=== PATIENT | male | born 1955 | race African-American/Black ===

== ENCOUNTER 2019-10-20 | Emergency (ER) | payer BC ==
[2019-10-20] MEDS ORDERED: SPIRONOLACT25 MG PO (15:13)
[2019-10-20] MEDS ORDERED: LISINOPRIL5 MG PO (15:13)
[2019-10-20] MEDS ORDERED: FUROSEMIDE20 MG PO (15:14)
[2019-10-20] MEDS ORDERED: ZYLOPRIM100 MG PO (15:14)
[2019-10-20] MEDS ORDERED: NORVASC2.5 M1 PO (15:15)
[2019-10-20] MEDS ORDERED: TERAZOSIN5 MG PO (15:15)
[2019-10-20 15:49] LABS: HEMATOCRIT 38.2 % (39.0-50.0); HEMOGLOBIN 11.9 g/dl (14.0-18.0); IMMATURE GRANULOCYTES 0.3 % (0.0-5.0); MEAN CORPUSCULAR HGB 30.2 pG CALC (26.0-32.0); MEAN CORPUSCULAR HGB CONC 31.2 g/L CALC (32.0-36.0); NEUT# 4.87 thou/uL (1.82-7.42); RED BLOOD COUNT 3.94 mill/uL (4.70-6.10); RED CELL DISTRI WIDTH 12.7 % (11.5-15.5)
[2019-10-20 16:10] LABS: ANION GAP 11 (6-22 (CALC)); BUN 33 mg/dL (8-23); BUN/CREATININE RATIO 19 (12-20 (CALC)); CARBON DIOXIDE 26 mmol/l (22-30); CHLORIDE 108 mmol/l (95-108); CREATININE 1.7 mg/dL (0.7-1.3); GFR 41 ML/MIN (>=60 (CALC)); GFR FOR AFR.AMER. 50 ML/MIN (>=60 (CALC)); POTASSIUM 4.2 mmol/l (3.5-5.1); SODIUM 140 mmol/l (137-146)
[2019-10-20] MEDS ORDERED: CYCLOBENZAPR5 MG PO (17:00)
== END 2019-10-20 17:17 | disposition home or self-care (01) | DRG 556 ==
PROVIDERS: Family Medicine
DX: M25.511 Pain in right shoulder (principal); I11.0 Hypertensive heart disease with heart failure; I50.9 Heart failure, unspecified

== ENCOUNTER 2020-11-14 14:29 | Emergency (ER) | payer BC ==
[~2020-11-14] VITALS: Ht 190.5 cm; Wt 175.0 kg
[~2020-11-14 14:29] MED LIST: CYCLOBENZAPR5 MG PO; FUROSEMIDE20 MG PO; LISINOPRIL5 MG PO; NORVASC2.5 M1 PO; SPIRONOLACT25 MG PO; TERAZOSIN5 MG PO; ZYLOPRIM100 MG PO
[2020-11-14 15:17] LABS: HEMATOCRIT 37.9 % (39.0-50.0); HEMOGLOBIN 12.3 g/dl (14.0-18.0); IMMATURE GRANULOCYTES 0.8 % (0.0-5.0); MEAN CELL VOLUME 95.5 fL CALC (80.0-100.0); MEAN CORPUSCULAR HGB CONC 32.5 g/dL CAL (32.0-36.0); RED BLOOD COUNT 3.97 mill/uL (4.70-6.10); RED CELL DISTRI WIDTH 13.5 % (11.5-15.5)
[2020-11-14 15:35] LABS: INTERNATIONAL NORMALIZED RATIO 1.2 RATIO (0.7-1.3); PROTHROMBIN TIME 11.6 SECONDS (9.0-12.5)
[2020-11-14 15:37] LABS: ALBUMIN 4.3 g/dL (3.2-5.0); ALKALINE PHOSPHATASE 55 u/l (38-126); ANION GAP 14 (6-22 (CALC)); BILIRUBIN, TOTAL 0.7 mg/dL (0.0-1.4); BUN 31 mg/dL (8-23); BUN/CREATININE RATIO 13 (12-20 (CALC)); CARBON DIOXIDE 24 mmol/l (22-30); CHLORIDE 103 mmol/l (95-108); CREATININE 2.3 mg/dL (0.7-1.3); GFR 29 ML/MIN (>=60 (CALC)); GFR FOR AFR.AMER. 35 ML/MIN (>=60 (CALC)); POTASSIUM 4.3 mmol/l (3.5-5.1); SODIUM 136 mmol/l (137-146); TOTAL PROTEIN 8.4 g/dL (6.3-8.2)
[2020-11-14 15:39] LABS: SGOT/AST 152 u/l (19-48)
[2020-11-14] MEDS ORDERED: DECADRON4 MG PO ×2 (17:14→17:40)
[2020-11-14] MEDS ORDERED: VENTOLIN HFA IN ×2 (17:16→17:40)
[2020-11-14 17:44] VITALS: BP 139/88
== END 2020-11-14 17:53 | disposition home or self-care (01) | DRG 204 ==
LOC: ED 14:29
PROVIDERS: Student in an Organized Health Care Education/Training Program
DX: R91.8 Other nonspecific abnormal finding of lung field (principal); I13.0 Hypertensive heart and chronic kidney disease with heart failure and stage 1 through stage 4 chronic kidney disease, or unspecified chronic kidney disease; I50.9 Heart failure, unspecified; N18.9 Chronic kidney disease, unspecified; M10.9 Gout, unspecified; Z86.73 Personal history of transient ischemic attack (TIA), and cerebral infarction without residual deficits; Z20.822 Contact with and (suspected) exposure to COVID-19

== ENCOUNTER 2021-01-18 10:17 | Observation (INO) | payer BC ==
[~2021-01-18] VITALS: Ht 190.5 cm; Wt 172.0 kg
[~2021-01-18 10:17] MED LIST changes: +DECADRON4 MG PO; +VENTOLIN HFA IN
--- NOTE | 2021-01-18 10:20 | NUR ---
PT AMBULATED BACK TO ROOM. PT EXPLAINED PLAN OF CARE.
[2021-01-18] MEDS ORDERED: NORVASC5 M1 PO (11:03)
[2021-01-18] MEDS ORDERED: FUROSEMIDE20 MG PO ×2 (11:04→13:24)
[2021-01-18] MEDS ORDERED: AZATHIOPRINE50 MG PO (11:04)
[2021-01-18] MEDS ORDERED: CENTRUM ADULTS1 TAB (11:05)
[2021-01-18] MEDS ORDERED: D31000 UNIT PO (11:05)
--- NOTE | 2021-01-18 11:10 | NUR ---
RESTING IN BED WITH LEG ELEVATED AND AT BEDSIDE
[2021-01-18 11:17] LABS: HEMATOCRIT 35.2 % (39.0-50.0); IMMATURE GRANULOCYTES 0.6 % (0.0-5.0); MEAN CELL VOLUME 98.3 fL CALC (80.0-100.0); MEAN CORPUSCULAR HGB 30.7 pG CALC (26.0-32.0); MEAN CORPUSCULAR HGB CONC 31.3 g/dL CAL (32.0-36.0); NEUT# 3.69 thou/uL (1.82-7.42); RED BLOOD COUNT 3.58 mill/uL (4.70-6.10); RED CELL DISTRI WIDTH 14.4 % (11.5-15.5)
[2021-01-18 11:25] LABS: INTERNATIONAL NORMALIZED RATIO 1.1 RATIO (0.7-1.3); PROTHROMBIN TIME 10.7 SECONDS (9.0-12.5)
[2021-01-18 11:29] LABS: ALBUMIN 4.2 g/dL (3.2-5.0); ALKALINE PHOSPHATASE 58 u/l (38-126); ANION GAP 12 (6-22 (CALC)); BILIRUBIN, TOTAL 0.5 mg/dL (0.0-1.4); BUN 21 mg/dL (8-23); BUN/CREATININE RATIO 15 (12-20 (CALC)); CARBON DIOXIDE 26 mmol/l (22-30); CHLORIDE 107 mmol/l (95-108); CREATININE 1.4 mg/dL (0.7-1.3); GFR 51 ML/MIN (>=60 (CALC)); GFR FOR AFR.AMER. > 60 ML/MIN (>=60 (CALC)); POTASSIUM 4.1 mmol/l (3.5-5.1); SGOT/AST 53 u/l (19-48); SODIUM 140 mmol/l (137-146)
--- NOTE | 2021-01-18 12:36 | NUR ---
WALKED TO THE BATHROOM WITH THE ASSISTANCE OF A CANE
--- NOTE | 2021-01-18 13:41 | NUR ---
RESTING IN BED AT THIS TIME WITH AT THE BEDSIDE
[2021-01-18] MEDS ORDERED: LISINOPRIL20 MG PO (13:42)
[2021-01-18] MEDS ORDERED: METOLAZONE5 MG PO (13:42)
[2021-01-18] MEDS ORDERED: ANORO ELLIPTA 61 AER IN (13:42)
--- NOTE | 2021-01-18 14:40 | NUR ---
RECIEVED REPORT FROM JAYSHREE DONOVAN
--- NOTE | 2021-01-18 14:48 | NUR ---
PT ARRIVED TO [facility] ROOM 279 VIA WHEELCHAIR IN STABLE CONDITION ACCOMPINED BY ER STAFF. PT AMBULATED TO BED WITH STEADY GAIT. ASSESSMENT AND VITALS COMPLETED. BP 174/124, HR 65, O2 100% ON ROOM AIR. DYAN ZHOU NOTFIED OF BP. RESPIRATIONS ARE EVEN AND UNLABORED WITH NO DISTRESS NOTED. LUNG SOUNDS ARE CLEAR. HEART RHYTHM IS NORMAL. BOWEL SOUNDS ARE ACTIVE. #18G IN RAC FLUSHED, SITE APPEARS HEALTHY AND PATENT. SKIN IS COOL AND INTACT. 3+ EDEMA NOTED TO BLE, MORE SO THE RIGHT. PT REPORTS OF PREVIOUS STROKE. NO DRIFTS NOTED.HOME CPAP AT BEDSIDE. PT DENIES OF ANY PAINS OR DISCOMFORTS AT THIS TIME.ALLERGIES NOTED. PT ORIENTED TO ROOM AND CALL LIGHT SYSTEM. ALL SAFTEY PRECAUTIONS ARE IN PLACE WITH CALL LIGHT IN REACH. WILL CONTINUE TO MONITOR
[2021-01-18 14:55] VITALS: BP 174/124
--- NOTE | 2021-01-18 14:56 | NUR ---
Admission Note Report Given to: SENTHIL Transported by: X Wheelchair Stretcher Transported with: X Nurse Transporter Patent IV O2 Soda Column Operator Location: ICU D MS2 REPORTED NO ELIQUIS IN THE ER, WILL NEED TO BE GIVEEN
--- NOTE | 2021-01-18 15:01 | NUR ---
ABELARDO,ANRP AT BEDSIDE
--- NOTE | 2021-01-18 15:32 | NUR ---
RT AT BEDSIDE TO COMPLETE EKG
--- NOTE | 2021-01-18 16:10 | NUR ---
RADIOLOGY AT BEDSIDE
[2021-01-18 16:25] VITALS: BP 167/109
--- NOTE | 2021-01-18 16:33 | NUR ---
REASSESSMENT OF BP RESULTING IN 167/109, HR 69. PT REMAINS A/O X3. RESPIRATIONSA RE EVEN AND UNLABORED WITH NO DISRTESS. #18G IN RAC REMAINS PATENT. PT DENIES OF ANY PAINS OR DISCOMFORTS. PT AWARE OF HOME MEDICATION NEEDED TO BE BROUGHT IN. PT VERBALIZED DUNERSTANDING. ALL SAFETY PRECAUTIONS ARE IN PLACE WITH CALL LIGHT IN REACH. WILL CONTINUE TO MONITOR.
[2021-01-18 17:04] VITALS: BP 159/99
--- NOTE | 2021-01-18 17:18 | NUR ---
JAYSHREE YANEZ TO ADMINISTER IV APRESOLIN. BP RESULTING IN 159/99. APRESOLINE IV HELD. WILL CONTINUE TO MONITOR.
[2021-01-18 19:00] VITALS: BP 161/93
--- NOTE | 2021-01-18 19:50 | NUR ---
PT ADMITTED EARLIER FOR DVT, SIGNIFICANT EDEMA TO BLE WORSE ON RIGHT , PP WITH DOPPLER, ABD SOFT AND BS ACTIVE, DENIES PAIN TO AREA STATES HE CAN FEEL LIKE A PRESSURE IN THE R LE BUT NOT ACTUALLY PAIN. SKIN OTHERWISE WARM AND INTACT, COMFORT MEASURES PROVIDED, PT HOME CPAP AT BEDSIDE FOR HS. CALL CLAUDIA GILBERT, PT REPOSITIONS SELF FOR COMFORT.
--- NOTE | 2021-01-18 22:21 | NUR ---
PT PLACED HOME CPAP ON AT 2130, RESTING WITH EYES CLOSED, NO S/S OF DISTRESS NOTED.
--- NOTE | 2021-01-19 03:05 | NUR ---
PT RESTING IN BED WITH EYES CLOSED AND HOME CPAP ON WITH NO S/S OF DISTRESS. CALL TAYLOR WITHIN REACH.
[2021-01-19 04:00] VITALS: BP 141/86
--- NOTE | 2021-01-19 04:22 | NUR ---
PATIENT RESTING INBED WITH HOME CPAP INPLACE, OFFERS NO C/O PAIN OR DISCOMFORT, CALL TAYLOR WITHIN REACH, EDEMA TO BLE REMAINS UNCHANGED
[2021-01-19 05:44] LABS: ANION GAP 8 (6-22 (CALC)); BUN 20 mg/dL (8-23); BUN/CREATININE RATIO 15 (12-20 (CALC)); CARBON DIOXIDE 30 mmol/l (22-30); CHLORIDE 107 mmol/l (95-108); CREATININE 1.3 mg/dL (0.7-1.3); GFR 56 ML/MIN (>=60 (CALC)); GFR FOR AFR.AMER. > 60 ML/MIN (>=60 (CALC)); POTASSIUM 4.3 mmol/l (3.5-5.1); SODIUM 140 mmol/l (137-146)
[2021-01-19 05:45] LABS: HEMATOCRIT 34.5 % (39.0-50.0); HEMOGLOBIN 10.5 g/dl (14.0-18.0); MEAN CELL VOLUME 99.7 fL CALC (80.0-100.0); MEAN CORPUSCULAR HGB 30.3 pG CALC (26.0-32.0); MEAN CORPUSCULAR HGB CONC 30.4 g/dL CAL (32.0-36.0); RED BLOOD COUNT 3.46 mill/uL (4.70-6.10); RED CELL DISTRI WIDTH 14.5 % (11.5-15.5)
--- NOTE | 2021-01-19 07:00 | NUR ---
RECIEVED REPORT FROM JAYSHREE GLEZ
[2021-01-19 07:36] VITALS: BP 126/82
--- NOTE | 2021-01-19 07:55 | NUR ---
PT SITTING IN CHAIR. PT IS A/O X3. ASSESSMENT AND VITALS COMPLETED.BP126/82, HR61, O2 100% ON ROOM AIR. RESPIRATIONS ARE EVEN AND UNLABORED WITH NO DISTRESS NOTED. LUNG SOUNDS ARE CLEAR. HEART RHYTHM IS NORMAL. BOWEL SOUNDS ARE ACTIVE, EPORTED BM THIS MORNING. #18G IN RAC FLUSHED, SITE IS SLIGHTLY LEAKING PT STATES "WE CAN START A NEW ONE IF I STAY." 4+ EDEMA NOTED TO BLE, MORE SO ON THE RIGHT. SKIN INTACT. RADIAL PULSES STRONG. PEDAL PULSES WEAK. PT DENIES OF ANY PAINS OR DSICOMFORTS AT THIS TIME. PT INFORMED OF NEEDED HOME MED, VERBLAIZED UNDERSTANDING. ALL SAFETY PRECAUTIONS ARE IN PLAACE WITH CALL LIGHT IN REACH. WILL CONTINUE TO MONITOR
[2021-01-19 08:55] VITALS: BP 126/82
--- NOTE | 2021-01-19 09:30 | NUR ---
DR SOTELO AT BEDSIDE
--- NOTE | 2021-01-19 10:39 | NUR ---
PT TRANSPORTED TO CT VIA WHEELCHAIR IN STABLE CONDITION ACCOMPINED BY JAYSHREE DAY
--- NOTE | 2021-01-19 12:20 | NUR ---
PT SITTING UP IN RECYLINER EATING LUNCH. RESPIRATIONS ARE EVEN AND UNLABORED WITH NO DISTRESS NOTED. PT NOTIFIED OF DC LATER AFTERNOON. PT VERBLAIZED UNDERSTANDING. PT DENIES OF ANY NEEDS AT THIS TIME. ALL SAFTEY PRECAUTIONS ARE IN PLACE WITH CALL LIGHT IN REACH. WILL CONTINUE.
[2021-01-19] MEDS ORDERED: ELIQUIS STARTER5 MG PO (12:26)
--- NOTE | 2021-01-19 13:28 | NUR ---
PT EDUCTAED ON DISCHARGE INSTRUCTIONS AND ELIQUIS WITH AT BEDSIDE. PT VERBLAIZED UNDERSTANDING. #18G IN RAC REMOVED WITH CATHATER STILL INTACT. PT DENIES OF ANY QUESTIONS OR CONCERNS.
--- NOTE | 2021-01-19 13:36 | NUR ---
Discharge instructions given. Patient verbalizes understanding of same. Discharged in stable condition via Wheelchair to Home with staff. All belongings sent with pt. PT DISCHARGED HOME VIA WHEELCHAIR IN STABLE CONDITION ACCOMPAINED BY AND STAFF. PT DISCHARGED WITH ALL BELONINGS AND DC INSTRUCTIONS.
== END 2021-01-19 13:31 | disposition home or self-care (01) | DRG 300 ==
LOC: ED 10:17 → ED-I 11:30 → ED 11:51 → MS2 11:52
PROVIDERS: Emergency Medicine; Nurse Practitioner; ADMIT Internal Medicine; ATTEND Internal Medicine
DX: I82.411 Acute embolism and thrombosis of right femoral vein (principal); I13.0 Hypertensive heart and chronic kidney disease with heart failure and stage 1 through stage 4 chronic kidney disease, or unspecified chronic kidney disease; I82.431 Acute embolism and thrombosis of right popliteal vein; I50.9 Heart failure, unspecified; N18.9 Chronic kidney disease, unspecified; J44.9 Chronic obstructive pulmonary disease, unspecified; M10.9 Gout, unspecified; I89.0 Lymphedema, not elsewhere classified; M19.90 Unspecified osteoarthritis, unspecified site; Z91.041 Radiographic dye allergy status; Z87.891 Personal history of nicotine dependence; Z86.73 Personal history of transient ischemic attack (TIA), and cerebral infarction without residual deficits; Z20.822 Contact with and (suspected) exposure to COVID-19; R60.0 Localized edema; I82.4Y1 Acute embolism and thrombosis of unspecified deep veins of right proximal lower extremity
CPT/HCPCS: G0378

== ENCOUNTER 2022-04-13 08:48 | Day surgery (SDC) | payer MEDICARE ==
[~2022-04-13] VITALS: Ht 190.5 cm; Wt 175.1 kg
[~2022-04-13 08:48] MED LIST changes: +ANORO ELLIPTA 61 AER IN; +AZATHIOPRINE50 MG PO; +CENTRUM ADULTS1 TAB; +D31000 UNIT PO; +ELIQUIS STARTER5 MG PO; +LABETALOL HYDR200 MG PO; +LISINOPRIL20 MG PO; +METOLAZONE5 MG PO; +NORVASC5 M1 PO
[2022-04-13 11:27] VITALS: BP 168/98
== END 2022-04-13 11:16 | disposition home or self-care (01) ==
LOC: ENDO 08:48
PROVIDERS: ATTEND Surgery
PROC: 0DJD8ZZ Inspection of Lower Intestinal Tract, Via Natural or Artificial Opening Endoscopic (ICD-10-PCS; principal; 2022-04-13)
DX: Z12.11 Encounter for screening for malignant neoplasm of colon (principal); K57.30 Diverticulosis of large intestine without perforation or abscess without bleeding; I10 Essential (primary) hypertension; E11.9 Type 2 diabetes mellitus without complications; Z86.010 Personal history of colon polyps

== ENCOUNTER 2022-06-02 06:53 | Emergency (ER) | payer MEDICARE ==
[~2022-06-02] VITALS: Ht 190.5 cm; Wt 166.0 kg
[2022-06-02] VITALS (11 sets, daily range): BP systolic 102–169; BP diastolic 62–97
[2022-06-02 07:39] LABS: HEMATOCRIT 40.2 % (39.0-50.0); HEMOGLOBIN 13.1 g/dl (14.0-18.0); MEAN CELL VOLUME 93.5 fL CALC (80.0-100.0); MEAN CORPUSCULAR HGB 30.5 pG CALC (26.0-32.0); MEAN CORPUSCULAR HGB CONC 32.6 g/dL CAL (32.0-36.0); NEUT# 10.67 thou/uL (1.82-7.42); RED BLOOD COUNT 4.3 mill/uL (4.70-6.10); RED CELL DISTRI WIDTH 13.8 % (11.5-15.5)
[2022-06-02 07:54] LABS: ALBUMIN 3.5 g/dL (3.2-5.0); ALKALINE PHOSPHATASE 65 u/l (38-126); ANION GAP 11 (6-22 (CALC)); BUN 25 mg/dL (8-23); BUN/CREATININE RATIO 12 (12-20 (CALC)); CARBON DIOXIDE 27 mmol/l (22-30); CHLORIDE 107 mmol/l (95-108); CREATININE 2.1 mg/dL (0.7-1.3); GFR FOR AFR.AMER. 38 ML/MIN (>=60 (CALC)); GFR OTHER RACES 32 ML/MIN (>=60 (CALC)); SGOT/AST 43 u/l (19-48); SODIUM 141 mmol/l (137-146); TOTAL PROTEIN 7.3 g/dL (6.3-8.2)
[2022-06-02 07:55] LABS: BILIRUBIN, TOTAL 0.8 mg/dL (0.0-1.4)
[2022-06-02 08:05] LABS: MYOGLOBIN 1291 ng/mL (0 - 121)
[2022-06-02] MEDS ORDERED: ZITHROMAX250 MG PO (09:50)
[2022-06-02] MEDS ORDERED: VENTOLIN HFA108 MCG PO (09:50)
[2022-06-02] MEDS ORDERED: OMNICEF300 M1 PO (09:50)
[2022-06-02] MEDS ORDERED: PREDNISONE20 MG PO (09:50)
== END 2022-06-02 11:15 | disposition home or self-care (01) ==
LOC: ED 06:53
PROVIDERS: Emergency Medicine
DX: J44.1 Chronic obstructive pulmonary disease with (acute) exacerbation (principal); J18.9 Pneumonia, unspecified organism; J44.0 Chronic obstructive pulmonary disease with (acute) lower respiratory infection; I11.0 Hypertensive heart disease with heart failure; I50.9 Heart failure, unspecified; I73.9 Peripheral vascular disease, unspecified; Z86.73 Personal history of transient ischemic attack (TIA), and cerebral infarction without residual deficits; Z20.822 Contact with and (suspected) exposure to COVID-19

== ENCOUNTER 2022-07-27 15:21 | Emergency (ER) | payer MEDICARE ==
[~2022-07-27] VITALS: Ht 190.5 cm; Wt 172.0 kg
[~2022-07-27 15:21] MED LIST changes: +OMNICEF300 M1 PO; +PREDNISONE20 MG PO; +VENTOLIN HFA108 MCG PO; +ZITHROMAX250 MG PO
[2022-07-27] MEDS ORDERED: PLAVIX75 MG PO (15:26)
[2022-07-27 15:33] VITALS: BP 133/78
[2022-07-27 15:45] LABS: HEMATOCRIT 40.1 % (39.0-50.0); HEMOGLOBIN 12.7 g/dl (14.0-18.0); IMMATURE GRANULOCYTES 0.6 % (0.0-5.0); MEAN CELL VOLUME 97.6 fL CALC (80.0-100.0); MEAN CORPUSCULAR HGB 30.9 pG CALC (26.0-32.0); MEAN CORPUSCULAR HGB CONC 31.7 g/dL CAL (32.0-36.0); NEUT# 7.06 thou/uL (1.82-7.42); RED BLOOD COUNT 4.11 mill/uL (4.70-6.10); RED CELL DISTRI WIDTH 13.8 % (11.5-15.5)
[2022-07-27 15:48] VITALS: BP 116/71
[2022-07-27 16:01] VITALS: BP 117/76
[2022-07-27 16:01] LABS: BILIRUBIN, TOTAL 0.5 mg/dL (0.0-1.4); CREATININE 1.8 mg/dL (0.7-1.3); POTASSIUM 4.1 mmol/l (3.5-5.1); TOTAL PROTEIN 7.8 g/dL (6.3-8.2)
[2022-07-27 16:02] LABS: ALBUMIN 4.3 g/dL (3.2-5.0)
[2022-07-27 16:16] VITALS: BP 126/77
[2022-07-27 16:31] VITALS: BP 142/81
[2022-07-27] MEDS ORDERED: ELIQUIS STARTER5 MG PO (16:32)
[2022-07-27 16:46] VITALS: BP 101/83
== END 2022-07-27 17:21 | disposition home or self-care (01) ==
LOC: ED 15:21
PROVIDERS: Nurse Practitioner
DX: I82.401 Acute embolism and thrombosis of unspecified deep veins of right lower extremity (principal); I11.0 Hypertensive heart disease with heart failure; I50.9 Heart failure, unspecified; I73.9 Peripheral vascular disease, unspecified; Z86.73 Personal history of transient ischemic attack (TIA), and cerebral infarction without residual deficits; R60.0 Localized edema; I82.411 Acute embolism and thrombosis of right femoral vein

== ENCOUNTER 2022-09-07 10:11 | Inpatient (IN) | payer MEDICARE ==
[~2022-09-07] VITALS: Ht 190.5 cm; Wt 173.8 kg
[2022-09-07] VITALS (23 sets, daily range): BP systolic 144–191; BP diastolic 77–108
[~2022-09-07 10:11] MED LIST changes: +PLAVIX75 MG PO
[2022-09-07 10:29] LABS: IMMATURE GRANULOCYTES 0.3 % (0.0-5.0); MEAN CELL VOLUME 96.4 fL CALC (80.0-100.0); MEAN CORPUSCULAR HGB CONC 32.2 g/dL CAL (32.0-36.0); NEUT# 12.91 thou/uL (1.82-7.42); RED BLOOD COUNT 3.35 mill/uL (4.70-6.10); RED CELL DISTRI WIDTH 13.9 % (11.5-15.5)
[2022-09-07 10:32] LABS: HEMATOCRIT 32.3 % (39.0-50.0); HEMOGLOBIN 10.4 g/dl (14.0-18.0)
[2022-09-07 10:41] LABS: ALBUMIN 3.7 g/dL (3.2-5.0); CREATININE 1.6 mg/dL (0.7-1.3); TOTAL PROTEIN 7.5 g/dL (6.3-8.2)
[2022-09-07 10:42] LABS: BILIRUBIN, TOTAL 0.8 mg/dL (0.0-1.4)
[2022-09-07] MEDS ORDERED: COZAAR50 MG PO (12:44)
[2022-09-07] MEDS ORDERED: ELIQUIS5 MG PO (16:31)
[2022-09-08] VITALS (7 sets, daily range): BP systolic 121–134; BP diastolic 61–72
[2022-09-08 06:06] LABS: HEMATOCRIT 33.8 % (39.0-50.0); HEMOGLOBIN 10.9 g/dl (14.0-18.0); IMMATURE GRANULOCYTES 0.5 % (0.0-5.0); MEAN CELL VOLUME 96.6 fL CALC (80.0-100.0); MEAN CORPUSCULAR HGB 31.1 pG CALC (26.0-32.0); MEAN CORPUSCULAR HGB CONC 32.2 g/dL CAL (32.0-36.0); NEUT# 8.83 thou/uL (1.82-7.42); RED BLOOD COUNT 3.5 mill/uL (4.70-6.10); RED CELL DISTRI WIDTH 14.2 % (11.5-15.5)
[2022-09-08 06:42] LABS: ALBUMIN 3.4 g/dL (3.2-5.0); BILIRUBIN, TOTAL 0.7 mg/dL (0.0-1.4); CREATININE 2.1 mg/dL (0.7-1.3); POTASSIUM 3.8 mmol/l (3.5-5.1)
[2022-09-09 04:13] VITALS: BP 124/59
[2022-09-09 05:23] LABS: HEMATOCRIT 34.6 % (39.0-50.0); HEMOGLOBIN 11.1 g/dl (14.0-18.0); IMMATURE GRANULOCYTES 0.4 % (0.0-5.0); MEAN CELL VOLUME 95.6 fL CALC (80.0-100.0); MEAN CORPUSCULAR HGB 30.7 pG CALC (26.0-32.0); MEAN CORPUSCULAR HGB CONC 32.1 g/dL CAL (32.0-36.0); NEUT# 13.96 thou/uL (1.82-7.42); RED BLOOD COUNT 3.62 mill/uL (4.70-6.10); RED CELL DISTRI WIDTH 14.2 % (11.5-15.5)
[2022-09-09 05:53] LABS: ALBUMIN 3.3 g/dL (3.2-5.0); CREATININE 2.1 mg/dL (0.7-1.3); POTASSIUM 4.3 mmol/l (3.5-5.1); TOTAL PROTEIN 6.8 g/dL (6.3-8.2)
[2022-09-09 06:06] LABS: BILIRUBIN, TOTAL 0.4 mg/dL (0.0-1.4)
[2022-09-09 07:00] VITALS: BP 125/70
[2022-09-09 10:05] VITALS: BP 113/64
[2022-09-09 15:55] VITALS: BP 103/54
[2022-09-09 18:57] VITALS: BP 124/61
[2022-09-09 23:50] VITALS: BP 116/59
[2022-09-10 04:27] VITALS: BP 123/58
[2022-09-10 05:42] LABS: HEMATOCRIT 34.6 % (39.0-50.0); HEMOGLOBIN 10.9 g/dl (14.0-18.0); MEAN CELL VOLUME 96.1 fL CALC (80.0-100.0); MEAN CORPUSCULAR HGB 30.3 pG CALC (26.0-32.0); MEAN CORPUSCULAR HGB CONC 31.5 g/dL CAL (32.0-36.0); NEUT# 5.85 thou/uL (1.82-7.42); RED BLOOD COUNT 3.6 mill/uL (4.70-6.10); RED CELL DISTRI WIDTH 14.5 % (11.5-15.5)
[2022-09-10 06:14] LABS: URINE BILIRUBIN - DIPSTICK NEGATIVE (NEGATIVE); URINE BLOOD DIPSTICK SMALL (NEGATIVE); URINE CLARITY SL CLOUDY; URINE COLOR YELLOW; URINE GLUCOSE - DIPSTICK NEGATIVE (NEGATIVE); URINE KETONE TRACE mg/dL (NEGATIVE); URINE LEUK ESTERASE NEGATIVE (Negative); URINE NITRITE - DIPSTICK NEGATIVE (Negative); URINE PH 5.5 (4.5-8.0); URINE PROTEIN - DIPSTICK 30 mg/dL (NEG-TRACE); URINE UROBILINOGEN - DIPSTICK 0.2 E.U./dL (0.2)
[2022-09-10 06:17] LABS: URINE BACTERIA MODERATE hpf; URINE CALCIUM OXALATE CRYSTALS MODERATE lpf; URINE EPITHELIAL CELLS FEW EPI/hpf (0-FEW)
[2022-09-10 06:19] LABS: ALBUMIN 3.1 g/dL (3.2-5.0); BILIRUBIN, TOTAL 0.3 mg/dL (0.0-1.4); CREATININE 2.5 mg/dL (0.7-1.3); POTASSIUM 3.8 mmol/l (3.5-5.1); TOTAL PROTEIN 6.4 g/dL (6.3-8.2)
[2022-09-10 06:40] VITALS: BP 126/69
[2022-09-10 09:10] VITALS: BP 115/62
[2022-09-10 10:18] VITALS: BP 119/66
[2022-09-10 15:01] VITALS: BP 125/73
[2022-09-10 19:25] VITALS: BP 117/61
[2022-09-11 00:17] VITALS: BP 125/59
[2022-09-11 04:26] VITALS: BP 154/62
[2022-09-11 05:13] LABS: HEMATOCRIT 31.3 % (39.0-50.0); IMMATURE GRANULOCYTES 3.6 % (0.0-5.0); MEAN CORPUSCULAR HGB 30.7 pG CALC (26.0-32.0); MEAN CORPUSCULAR HGB CONC 31.9 g/dL CAL (32.0-36.0); NEUT# 3.86 thou/uL (1.82-7.42); RED BLOOD COUNT 3.26 mill/uL (4.70-6.10); RED CELL DISTRI WIDTH 14.7 % (11.5-15.5)
[2022-09-11 05:31] LABS: CREATININE 1.9 mg/dL (0.7-1.3); POTASSIUM 3.6 mmol/l (3.5-5.1)
[2022-09-11 06:26] VITALS: BP 121/61
[2022-09-11 10:43] VITALS: BP 146/84
[2022-09-11 16:20] VITALS: BP 140/48
[2022-09-11 18:52] VITALS: BP 133/53
[2022-09-12 00:37] VITALS: BP 120/57
[2022-09-12 06:15] VITALS: BP 136/54
[2022-09-12 07:38] LABS: ALBUMIN 3.3 g/dL (3.2-5.0); BILIRUBIN, TOTAL 0.2 mg/dL (0.0-1.4); CREATININE 1.7 mg/dL (0.7-1.3); POTASSIUM 3.4 mmol/l (3.5-5.1); TOTAL PROTEIN 6.8 g/dL (6.3-8.2)
[2022-09-12 07:40] LABS: ALBUMIN 3.1 g/dL (3.2-5.0); BUN 41 mg/dL (8-23); CARBON DIOXIDE 27 mmol/l (22-30); CHLORIDE 111 mmol/l (95-108); CREATININE 1.7 mg/dL (0.7-1.3); GFR FOR AFR.AMER. 49 ML/MIN (>=60 (CALC)); GFR OTHER RACES 41 ML/MIN (>=60 (CALC)); POTASSIUM 3.7 mmol/l (3.5-5.1); SODIUM 147 mmol/l (137-146)
[2022-09-12] MEDS ORDERED: ERTAPENEM1 GM IV (08:47)
[2022-09-12 09:55] LABS: HEMATOCRIT 31.7 % (39.0-50.0); HEMOGLOBIN 9.9 g/dl (14.0-18.0); MEAN CELL VOLUME 96.6 fL CALC (80.0-100.0); MEAN CORPUSCULAR HGB 30.2 pG CALC (26.0-32.0); MEAN CORPUSCULAR HGB CONC 31.2 g/dL CAL (32.0-36.0); NEUT# 3.38 thou/uL (1.82-7.42); RED BLOOD COUNT 3.28 mill/uL (4.70-6.10)
[2022-09-12 10:09] VITALS: BP 144/60
[2022-09-12 10:18] LABS: IMMATURE GRANULOCYTES 6.3 % (0.0-5.0)
[2022-09-12 10:22] VITALS: BP 144/60
== END 2022-09-12 13:36 | disposition home health service (06) | DRG 862 ==
LOC: ED 10:11 → ED-I 14:40 → ED 15:13 → MS2 15:14
PROVIDERS: Emergency Medicine; Internal Medicine; Internal Medicine Infectious Disease; Internal Medicine Nephrology; Nurse Practitioner Family; ADMIT Internal Medicine; ATTEND Internal Medicine
DX: T81.41XA Infection following a procedure, superficial incisional surgical site, initial encounter (principal); A41.51 Sepsis due to Escherichia coli [E. coli]; J18.9 Pneumonia, unspecified organism; R65.20 Severe sepsis without septic shock; L03.115 Cellulitis of right lower limb; I13.0 Hypertensive heart and chronic kidney disease with heart failure and stage 1 through stage 4 chronic kidney disease, or unspecified chronic kidney disease; J44.0 Chronic obstructive pulmonary disease with (acute) lower respiratory infection; N17.9 Acute kidney failure, unspecified; I82.501 Chronic embolism and thrombosis of unspecified deep veins of right lower extremity; Z16.12 Extended spectrum beta lactamase (ESBL) resistance; I50.9 Heart failure, unspecified; N18.30 Chronic kidney disease, stage 3 unspecified; E86.9 Volume depletion, unspecified; D63.1 Anemia in chronic kidney disease; N28.1 Cyst of kidney, acquired; I87.021 Postthrombotic syndrome with inflammation of right lower extremity; M10.9 Gout, unspecified; E66.01 Morbid (severe) obesity due to excess calories; Y83.8 Other surgical procedures as the cause of abnormal reaction of the patient, or of later complication, without mention of misadventure at the time of the procedure; Z86.73 Personal history of transient ischemic attack (TIA), and cerebral infarction without residual deficits; Z87.891 Personal history of nicotine dependence; Z20.822 Contact with and (suspected) exposure to COVID-19
CPT/HCPCS: J0692; Q9967

== ENCOUNTER 2022-11-23 17:16 | Emergency (ER) | payer MEDICARE ==
[~2022-11-23] VITALS: Ht 190.5 cm; Wt 166.0 kg
[2022-11-23] VITALS (7 sets, daily range): BP systolic 118–158; BP diastolic 60–87
[~2022-11-23 17:16] MED LIST changes: +COZAAR50 MG PO; +ELIQUIS5 MG PO; +ERTAPENEM1 GM IV
[2022-11-23 18:36] LABS: BASO% 0.3 % (0-3); EOS% 1.6 % (0-8); IMMATURE GRANULOCYTES 0.2 % (0.0-5.0); LYMPH% 26.8 % (15-41); MEAN CORPUSCULAR HGB 30.6 pG CALC (26.0-32.0); MEAN CORPUSCULAR HGB CONC 33.2 g/dL CAL (32.0-36.0); MONO% 5.6 % (2-13); NEUT# 7.81 thou/uL (1.82-7.42); NEUT% 65.5 % (42-76); RED BLOOD COUNT 4.38 mill/uL (4.70-6.10); RED CELL DISTRI WIDTH 12.8 % (11.5-15.5)
[2022-11-23 18:41] LABS: HEMATOCRIT 40.4 % (39.0-50.0); HEMOGLOBIN 13.4 g/dl (14.0-18.0); MEAN CELL VOLUME 92.2 fL CALC (80.0-100.0)
[2022-11-23 18:48] LABS: ALKALINE PHOSPHATASE 74 u/l (38-126); BUN 18 mg/dL (8-23); BUN/CREATININE RATIO 12 (12-20 (CALC)); CHLORIDE 113 mmol/l (95-108); CREATININE 1.5 mg/dL (0.7-1.3); GFR FOR AFR.AMER. 57 ML/MIN (>=60 (CALC)); GFR OTHER RACES 47 ML/MIN (>=60 (CALC)); SGOT/AST 48 u/l (19-48); SODIUM 140 mmol/l (137-146); TOTAL PROTEIN 6.5 g/dL (6.3-8.2)
[2022-11-23 18:52] LABS: ANION GAP 12 (6-22 (CALC)); BILIRUBIN, TOTAL 0.6 mg/dL (0.2-1.3); CARBON DIOXIDE 18 mmol/l (22-30); POTASSIUM 3.4 mmol/l (3.5-5.1)
[2022-11-23] MEDS ORDERED: ZPAK PO (20:12)
[2022-11-23] MEDS ORDERED: MEDDOSEPAK PO (20:12)
== END 2022-11-23 20:31 | disposition home or self-care (01) ==
LOC: ED 17:16
PROVIDERS: Nurse Practitioner
DX: R06.02 Shortness of breath (principal); R53.1 Weakness; I11.0 Hypertensive heart disease with heart failure; I50.9 Heart failure, unspecified; I73.9 Peripheral vascular disease, unspecified; Z87.01 Personal history of pneumonia (recurrent); Z95.828 Presence of other vascular implants and grafts; Z79.01 Long term (current) use of anticoagulants; Z79.02 Long term (current) use of antithrombotics/antiplatelets; Z86.73 Personal history of transient ischemic attack (TIA), and cerebral infarction without residual deficits; Z20.822 Contact with and (suspected) exposure to COVID-19

== ENCOUNTER 2024-03-18 17:05 | Emergency (ER) | payer MEDICARE ==
[~2024-03-18] VITALS: Ht 190.5 cm; Wt 174.0 kg
[2024-03-18] VITALS (9 sets, daily range): BP systolic 118–149; BP diastolic 74–90
[~2024-03-18 17:05] MED LIST changes: +MEDDOSEPAK PO; +ZPAK PO
[2024-03-18 18:08] LABS: BASO% 0.4 % (0-3); EOS% 1.3 % (0-8); HEMATOCRIT 38.9 % (39.0-50.0); HEMOGLOBIN 12.7 g/dl (14.0-18.0); IMMATURE GRANULOCYTES 0.4 % (0.0-5.0); LYMPH% 25.3 % (15-41); MEAN CORPUSCULAR HGB 31.4 pG CALC (26.0-32.0); MEAN CORPUSCULAR HGB CONC 32.6 g/dL CAL (32.0-36.0); NEUT# 7.33 thou/uL (1.82-7.42); NEUT% 60.6 % (42-76); RED BLOOD COUNT 4.05 mill/uL (4.70-6.10); RED CELL DISTRI WIDTH 12.5 % (11.5-15.5)
[2024-03-18 18:11] LABS: ALBUMIN 4.3 g/dL (3.2-5.0); BILIRUBIN, TOTAL 0.5 mg/dL (0.2-1.3); CREATININE 2.5 mg/dL (0.7-1.3); POTASSIUM 3.4 mmol/l (3.5-5.1); TOTAL PROTEIN 8.5 g/dL (6.3-8.2)
[2024-03-18] MEDS ORDERED: methylPREDNISolone SODIUM SUCC 125 MG/2 ML SDV IM ONE (18:40)
[2024-03-18] MEDS ORDERED: COLCHICINE 0.6 MG/TAB PO ONE (18:40)
[2024-03-18] MEDS ORDERED: COLCHICINE0.6 M2 PO (18:51)
[2024-03-18] MEDS ORDERED: PREDNISONE50 MG PO (18:51)
[2024-03-18] MEDS ORDERED: HYDROCO/APAP1 TA9 PO (18:51)
== END 2024-03-18 19:59 | disposition home or self-care (01) ==
LOC: ED 17:05
PROVIDERS: Family Medicine
DX: M79.662 Pain in left lower leg (principal); M79.661 Pain in right lower leg; M10.9 Gout, unspecified; I11.0 Hypertensive heart disease with heart failure; I50.9 Heart failure, unspecified; I73.9 Peripheral vascular disease, unspecified; E66.9 Obesity, unspecified; Z86.73 Personal history of transient ischemic attack (TIA), and cerebral infarction without residual deficits; Z86.718 Personal history of other venous thrombosis and embolism

== ENCOUNTER 2024-04-19 12:10 | Emergency (ER) | payer MEDICARE ==
[~2024-04-19] VITALS: Ht 190.5 cm; Wt 170.0 kg
[~2024-04-19 12:10] MED LIST changes: +COLCHICINE0.6 M2 PO; +HYDROCO/APAP1 TA9 PO; +PREDNISONE50 MG PO
[2024-04-19] MEDS ORDERED: methylPREDNISolone SODIUM SUCC 125 MG/2 ML SDV IM ONE (12:45)
[2024-04-19] MEDS ORDERED: PREDNISONE20 MG PO (13:01)
[2024-04-19] MEDS ORDERED: KEFLEX500 MG PO (13:02)
[2024-04-19 13:17] VITALS: BP 143/75
[2024-04-19 13:18] VITALS: BP 143/75
== END 2024-04-19 13:30 | disposition home or self-care (01) ==
LOC: ED 12:10
DX: M79.604 Pain in right leg (principal); I89.0 Lymphedema, not elsewhere classified; I11.0 Hypertensive heart disease with heart failure; I50.9 Heart failure, unspecified; I73.9 Peripheral vascular disease, unspecified; M10.9 Gout, unspecified; Z86.73 Personal history of transient ischemic attack (TIA), and cerebral infarction without residual deficits; Z86.718 Personal history of other venous thrombosis and embolism; Z79.01 Long term (current) use of anticoagulants

== ENCOUNTER 2024-11-12 20:14 | Observation (INO) | payer MEDICARE ==
[~2024-11-12] VITALS: Ht 190.5 cm; Wt 115.0 kg
[~2024-11-12 20:14] MED LIST changes: +KEFLEX500 MG PO
[2024-11-12 20:23] VITALS: BP 169/99
[2024-11-12] MEDS ORDERED: ASPIRIN 81 MG/TAB PO ONE ×2 (20:25→22:05)
[2024-11-12 20:31] VITALS: BP 143/99
[2024-11-12] MEDS ORDERED: BAYER ASPIRIN E81 MG PO (20:35)
[2024-11-12] MEDS ORDERED: CHLORTHALIDONE25 MG PO (20:36)
[2024-11-12 20:51] LABS: BASO% 0.4 % (0-3); EOS% 3.1 % (0-8); HEMATOCRIT 40.7 % (39.0-50.0); HEMOGLOBIN 12.9 g/dl (14.0-18.0); IMMATURE GRANULOCYTES 0.3 % (0.0-5.0); LYMPH% 29.5 % (15-41); MEAN CELL VOLUME 97.1 fL CALC (80.0-100.0); MEAN CORPUSCULAR HGB 30.8 pG CALC (26.0-32.0); MEAN CORPUSCULAR HGB CONC 31.7 g/dL CAL (32.0-36.0); MONO% 9.4 % (2-13); NEUT# 4.27 thou/uL (1.82-7.42); NEUT% 57.3 % (42-76); RED BLOOD COUNT 4.19 mill/uL (4.70-6.10); RED CELL DISTRI WIDTH 13.3 % (11.5-15.5)
[2024-11-12 21:00] LABS: ALBUMIN 4.1 g/dL (3.2-5.0); ALKALINE PHOSPHATASE 79 u/l (38-126); ANION GAP 11 (6-22 (CALC)); BILIRUBIN, TOTAL 0.5 mg/dL (0.2-1.3); BUN 28 mg/dL (8-23); BUN/CREATININE RATIO 15 (12-20 (CALC)); CARBON DIOXIDE 28 mmol/l (22-30); CHLORIDE 109 mmol/l (95-108); CREATININE 1.9 mg/dL (0.7-1.3); ESTIMATED GFR 38 ML/MIN (>=90 (CALC)); POTASSIUM 3.9 mmol/l (3.5-5.1); SGOT/AST 51 u/l (19-48); SODIUM 143 mmol/l (137-146); TOTAL PROTEIN 7.9 g/dL (6.3-8.2)
[2024-11-12] MEDS ORDERED: ONDANSETRON HCl 4 MG/2 ML SDV IV ONE (22:05)
[2024-11-12] MEDS ORDERED: NITROGLYCERIN 2% OINT UD 1 GM/PAK TD ONE (22:05)
[2024-11-12] MEDS ORDERED: MORPHINE SULFATE 4 MG/ML VIAL IV ONE (22:05)
[2024-11-12] MEDS ORDERED: ENOXAPARIN SODIUM 30 MG/0.3 ML INJ IV ONE (22:05)
[2024-11-12 22:20] VITALS: BP 183/104
[2024-11-12 22:23] VITALS: BP 175/99
[2024-11-12] MEDS ORDERED: hydrALAZINE HCL 20 MG/ML VIAL(1 ML) IV ONE (22:25)
[2024-11-12] MEDS ORDERED: ENOXAPARIN SODIUM 100 MG/ML SYR SC ONE (22:55)
[2024-11-12 22:57] VITALS: BP 140/89
[2024-11-12 23:01] VITALS: BP 155/98
[2024-11-12] MEDS ORDERED: FAMOTIDINE 10MG/ML 2ML SDV IV PRN (23:10)
[2024-11-12] MEDS ORDERED: ONDANSETRON 4 MG/TAB ODT PO PRN (23:10)
[2024-11-12] MEDS ORDERED: ONDANSETRON HCl 4 MG/2 ML SDV IV PRN (23:10)
[2024-11-12] MEDS ORDERED: ALUM & MAG HYDROX-SIMETHICONE 30 ML PO PRN (23:10)
[2024-11-12] MEDS ORDERED: Polyethylene Glycol 3350 17 GM/PKT PO PRN (23:10)
[2024-11-12] MEDS ORDERED: IBUPROFEN 800 MG/TAB PO PRN (23:10)
[2024-11-13 00:12] VITALS: BP 162/103
[2024-11-13 00:15] VITALS: BP 162/103
[2024-11-13 03:05] LABS: BASO% 0.5 % (0-3); EOS% 2.7 % (0-8); HEMATOCRIT 39.6 % (39.0-50.0); HEMOGLOBIN 12.5 g/dl (14.0-18.0); IMMATURE GRANULOCYTES 0.3 % (0.0-5.0); LYMPH% 42.2 % (15-41); MEAN CELL VOLUME 96.6 fL CALC (80.0-100.0); MEAN CORPUSCULAR HGB 30.5 pG CALC (26.0-32.0); MEAN CORPUSCULAR HGB CONC 31.6 g/dL CAL (32.0-36.0); MONO% 9.7 % (2-13); NEUT# 3.44 thou/uL (1.82-7.42); NEUT% 44.6 % (42-76); RED BLOOD COUNT 4.1 mill/uL (4.70-6.10); RED CELL DISTRI WIDTH 13.4 % (11.5-15.5)
[2024-11-13 03:11] LABS: ALBUMIN 3.5 g/dL (3.2-5.0); BILIRUBIN, TOTAL 0.4 mg/dL (0.2-1.3); CREATININE 1.7 mg/dL (0.7-1.3); MAGNESIUM 2.1 mg/dL (1.6-2.3); TOTAL PROTEIN 6.8 g/dL (6.3-8.2)
[2024-11-13 03:14] LABS: PROTHROMBIN TIME 11.2 SECONDS (9.0-12.5)
[2024-11-13 04:00] VITALS: BP 154/87
[2024-11-13] MEDS ORDERED: SODIUM CHLORIDE 0.9% 1,000 ML IV PRN (10:00)
[2024-11-13] MEDS ORDERED: LOSARTAN Potassium 50 MG/TAB PO SCH (11:00)
[2024-11-13] MEDS ORDERED: amLODIPine BESYLATE 5 MG/TAB PO SCH (11:00)
[2024-11-13] MEDS ORDERED: APIXABAN BASE 5 MG TAB PO SCH (11:00)
[2024-11-13] MEDS ORDERED: ASPIRIN EC 81 MG/TAB PO SCH (11:00)
[2024-11-13] MEDS ORDERED: CLOPIDOGREL BISULFATE 75 MG/TAB TAB PO SCH (11:00)
[2024-11-13] MEDS ORDERED: ACETAMINOPHEN 500 MG TAB PO SCH (12:00)
[2024-11-13] MEDS ORDERED: FUROSEMIDE 20 MG/TAB PO SCH (14:00)
[2024-11-13 20:39] VITALS: BP 121/82
[2024-11-13 23:46] VITALS: BP 133/81
[2024-11-14 04:10] VITALS: BP 135/87
[2024-11-14 05:33] LABS: BASO% 0.7 % (0-3); EOS% 4.2 % (0-8); HEMATOCRIT 38.8 % (39.0-50.0); HEMOGLOBIN 12.5 g/dl (14.0-18.0); IMMATURE GRANULOCYTES 0.1 % (0.0-5.0); LYMPH% 40.3 % (15-41); MEAN CELL VOLUME 97.2 fL CALC (80.0-100.0); MEAN CORPUSCULAR HGB 31.3 pG CALC (26.0-32.0); MEAN CORPUSCULAR HGB CONC 32.2 g/dL CAL (32.0-36.0); MONO% 10.9 % (2-13); NEUT# 3.01 thou/uL (1.82-7.42); NEUT% 43.8 % (42-76); RED BLOOD COUNT 3.99 mill/uL (4.70-6.10); RED CELL DISTRI WIDTH 13.6 % (11.5-15.5)
[2024-11-14 05:47] LABS: ALBUMIN 3.3 g/dL (3.2-5.0); CREATININE 1.7 mg/dL (0.7-1.3); MAGNESIUM 2.1 mg/dL (1.6-2.3); POTASSIUM 4.1 mmol/l (3.5-5.1); TOTAL PROTEIN 6.4 g/dL (6.3-8.2)
[2024-11-14 06:00] LABS: BILIRUBIN, TOTAL 0.7 mg/dL (0.2-1.3)
[2024-11-14 07:00] VITALS: BP 122/78
[2024-11-14] MEDS ORDERED: ELIQUIS5 MG PO (10:20)
[2024-11-14 10:39] VITALS: BP 157/98
== END 2024-11-14 10:52 | disposition home or self-care (01) ==
LOC: ED 20:14 → ED-I 22:48 → ED 23:08 → MS2 23:09
PROVIDERS: Nurse Practitioner; Nurse Practitioner Family; ADMIT Internal Medicine; ATTEND Internal Medicine
DX: R07.89 Other chest pain (principal); I13.0 Hypertensive heart and chronic kidney disease with heart failure and stage 1 through stage 4 chronic kidney disease, or unspecified chronic kidney disease; N18.9 Chronic kidney disease, unspecified; I50.9 Heart failure, unspecified; J44.9 Chronic obstructive pulmonary disease, unspecified; I73.9 Peripheral vascular disease, unspecified; E78.00 Pure hypercholesterolemia, unspecified; Z82.49 Family history of ischemic heart disease and other diseases of the circulatory system; Z86.718 Personal history of other venous thrombosis and embolism; Z79.01 Long term (current) use of anticoagulants; T45.516A Underdosing of anticoagulants, initial encounter; Z91.120 Patient's intentional underdosing of medication regimen due to financial hardship; Z86.73 Personal history of transient ischemic attack (TIA), and cerebral infarction without residual deficits; Z87.891 Personal history of nicotine dependence
CPT/HCPCS: J0360; J1650; J2405